=== PATIENT | female | born 1950 | race Caucasian/White ===

== ENCOUNTER 2018-03-06 11:15 | Outpatient (RCR) | payer MEDICARE, OTHER | END 2018-04-28 | disposition home or self-care (01) | LOC: WSC | DX: M54.2 Cervicalgia (principal); Z79.82 Long term (current) use of aspirin; Z79.899 Other long term (current) drug therapy; Z80.1 Family history of malignant neoplasm of trachea, bronchus and lung; Z82.49 Family history of ischemic heart disease and other diseases of the circulatory system; Z87.891 Personal history of nicotine dependence | CPT/HCPCS: G8981-GP; G8982-GP; G8983-GP ==

== ENCOUNTER 2019-05-02 13:23 | Outpatient (CLI) | payer MEDICARE, OTHER ==
[~2019-05-02] VITALS: Wt 78.2 kg
[2019-05-02] MEDS ORDERED: 00186-0370-20 IH (13:56)
[2019-05-02] MEDS ORDERED: FISH OIL 500 M1 EAC1 PO (13:57)
[2019-05-02] MEDS ORDERED: NIACIN 100100 MG/TAB PO (13:57)
[2019-05-02] MEDS ORDERED: MAG-OX 400400 MG/TAB PO (13:58)
[2019-05-02 14:00] VITALS: BP 112/59; PULSE 95; TEMP 98.1
[2019-05-02] MEDS ORDERED: INCRUSE EL62.5 MCG/A IH (14:00)
[2019-05-02] MEDS ORDERED: ASPIRIN 32325 MG/TAB PO (14:01)
== END 2019-05-02 15:17 | disposition home or self-care (01) ==
LOC: EUO 13:23
DX: M81.0 Age-related osteoporosis without current pathological fracture (principal)
CPT/HCPCS: J0897

== ENCOUNTER 2019-11-04 15:05 | Outpatient (CLI) | payer MEDICARE, OTHER ==
[~2019-11-04] VITALS: Wt 93.9 kg
[~2019-11-04 15:05] MED LIST: 00186-0370-20 IH; ASPIRIN 32325 MG/TAB PO; FISH OIL 500 M1 EAC1 PO; INCRUSE EL62.5 MCG/A IH; MAG-OX 400400 MG/TAB PO; NIACIN 100100 MG/TAB PO
[2019-11-04 15:19] VITALS: BP 134/95; PULSE 80; TEMP 98.2
== END 2019-11-04 16:05 | disposition home or self-care (01) ==
LOC: EUO 15:05
DX: M81.0 Age-related osteoporosis without current pathological fracture (principal); Z79.899 Other long term (current) drug therapy
CPT/HCPCS: J0897

== ENCOUNTER 2020-05-12 14:57 | Outpatient (CLI) | payer MEDICARE, OTHER ==
[~2020-05-12] VITALS: Ht 147.3 cm; Wt 92.5 kg
[2020-05-12 15:21] VITALS: BP 129/69; PULSE 80; TEMP 98.3
== END 2020-05-12 15:38 | disposition home or self-care (01) ==
LOC: EUO 14:57
DX: M81.0 Age-related osteoporosis without current pathological fracture (principal)
CPT/HCPCS: J0897

== ENCOUNTER 2020-11-01 15:38 | Inpatient (IN) | payer MEDICARE ==
[~2020-11-01] VITALS: Ht 147.3 cm; Wt 90.5 kg
[2020-11-01 16:32] LABS: BASO # 0.1 (0.0-0.2); BASO % 0.7 % (0.0-2.0); EOS # 0.1 (0.0-0.7); EOS % 1.2 % (0-4.0); GRAN # 6.5 (1.4-6.5); GRAN % 63.4 % (42.2-75.2); HEMATOCRIT 49.9 % (37.0-47.0); HEMOGLOBIN 15.9 g/dl (12.5-16.0); LYMPH # 2.9 (1.2-3.4); LYMPH % 28.1 % (20.0-51.0); MEAN CELL VOLUME 97 fl (80.0-100.0); MEAN CORPUSCULAR HEMOGLOBIN 31 pg (27.0-31.0); MEAN CORPUSCULAR HGB CONC 32 g/dl (33.0-37.0); MEAN PLATELET VOLUME 10.1 fl (7.4-10.4); MONO # 0.6 (0.1-0.6); MONO % 6.1 % (1.7-9.3); PLATELET COUNT 263 K/mm3 (130-400); RED BLOOD COUNT 5.13 M/mm3 (4.10-5.30)
[2020-11-01 16:41] LABS: INR 1.4 (0.8-3.0); PROTHROMBIN TIME 15.8 SECONDS (9.7-12.8)
[2020-11-01 16:43] LABS: ALANINE AMINOTRANSFERASE 11 U/L (4-34); ALBUMIN 4.3 gm/dL (3.5-5.0); ALKALINE PHOSPHATASE 74 U/L (50-136); ANION GAP 6 mmol/L (7-16); AST,SGOT 21 U/L (15-37); BILIRUBIN,TOTAL 0.5 mg/dL (0.0-1.0); BLOOD UREA NITROGEN 11 mg/dL (7-17); CALCIUM 8.9 mg/dL (8.4-10.2); CARBON DIOXIDE 26 mmol/L (22-30); CHLORIDE 105 mmol/L (98-107); CREATININE, serum 0.62 (0.52-1.25); GLUCOSE 103 mg/dL (74-106); PARTIAL THROMBOPLASTIN TIME 40.6 SECONDS (26.0-37.0); POTASSIUM 4.3 mmol/L (3.4-5.0); SODIUM 137 mmol/L (137-145); TOTAL PROTEIN 7.4 gm/dL (6.4-8.2)
[2020-11-01 16:56] LABS: TROPONIN-I < 0.012 ng/mL (0.000-0.035)
[2020-11-01] MEDS ORDERED: ELIQUIS 5MG PO (18:48)
[2020-11-01] MEDS ORDERED: VITAMIN D31000 I1 PO (18:48)
[2020-11-01] MEDS ORDERED: TRELEGY ELLIPT1 EACH IH (18:49)
[2020-11-01] MEDS ORDERED: CARDIZEM120 MG PO (18:49)
[2020-11-01] MEDS ORDERED: VENTOLIN0.09 MG IH (18:50)
[2020-11-01] MEDS ORDERED: NATURAL IRON65 MG PO (18:51)
[2020-11-01] MEDS ORDERED: RT ALBUTER2.5 MG/0.5 IH (18:51)
--- NOTE | 2020-11-01 20:00 | NUR ---
Patient up from ED via wheelchair with and daughter. Oriented to room and call light. Admission and med rec complete. Patient sitting in recliner eating dinner tray. No additional needs at this time.
[2020-11-01 21:10] VITALS: BP 126/50; PULSE 64; TEMP 98.2
[2020-11-02] VITALS (14 sets, daily range): BP systolic 100–142; BP diastolic 35–67; PULSE 59–99; TEMP 97.7–98.9
--- NOTE | 2020-11-02 12:01 | NUR ---
Patient alert and oriented, answers questions appropriately. See assessment. Heart tones strong and irregular. No c/o chest or jaw pain or pressure. Patient and family at bedside upset about no having cardioversion done yet. Reviewed with patient that Carcass Washer is aware of patient status and will be seeing her. Patient daughter keeps shaking head and repeating "this is ridiculous, do you know she hasn't eaten in 24hr." Reviewed POC with patient and family. No other c/o at this time.
--- NOTE | 2020-11-02 12:52 | NUR ---
First visit from the women's health care nurse practitioner. No needs right now.
--- NOTE | 2020-11-02 13:18 | NUR ---
Cop Winder attended clinical rounds with the team and patient expressed frustration waiting on if she can have her procedure done today or not. Hosptialist advised patient he has followed up with Cardiology. SW met with patient after rounds to discuss discharge planning. Patient's , Anthony and daughter, Emma are at bedside. Patient lives in [place] with her and sees Dr. Willett for primary care. Patient obtains medications from [facility] and states her prescriptions are expensive. SW consulted Financial Counseling to determine if patient would qualify for Medicaid. Patient has a cane and walker at home and reports she is independent with ADLS, however can get worn out by taking a shower. Patient does not have Advance Directives but would like to complete form. MARGIE assisted patient in completing DPOA-HC form in which she designated her and daughter. MARGIE and JESS Mejia provided witness signatures. MARGIE placed copy in chart then provided original and copies to patient. Discharge Plan: Home with
--- NOTE | 2020-11-02 14:17 | NUR ---
Patient to labor delivery specialist with labor delivery specialist staff at 1340.
--- NOTE | 2020-11-02 21:00 | NUR ---
Patient resting in bed. Wheezes heard on expiration. Dyspnea at rest and with excertion. 2 L of oxygen via nasal cannula.
[2020-11-03] VITALS (7 sets, daily range): BP systolic 102–132; BP diastolic 39–65; PULSE 51–84; TEMP 97.8–98.9
--- NOTE | 2020-11-03 01:04 | NUR ---
Patient got up to the bathroom and is now feeling short of breath and would like a breathing treatment. Called RT.
[2020-11-03 07:02] LABS: BASO # 0.1 (0.0-0.2); BASO % 0.6 % (0.0-2.0); EOS # 0.2 (0.0-0.7); GRAN % 53.4 % (42.2-75.2); HEMATOCRIT 42.8 % (37.0-47.0); HEMOGLOBIN 13.6 g/dl (12.5-16.0); LYMPH # 3.2 (1.2-3.4); LYMPH % 34.6 % (20.0-51.0); MEAN CELL VOLUME 99 fl (80.0-100.0); MEAN CORPUSCULAR HEMOGLOBIN 31 pg (27.0-31.0); MEAN CORPUSCULAR HGB CONC 32 g/dl (33.0-37.0); MEAN PLATELET VOLUME 10.1 fl (7.4-10.4); MONO # 0.9 (0.1-0.6); MONO % 9.1 % (1.7-9.3); PLATELET COUNT 257 K/mm3 (130-400); RED BLOOD COUNT 4.33 M/mm3 (4.10-5.30); REDCELL DISTRIBUTION WIDTH-CV 13.9 % (11.5-14.5)
[2020-11-03 07:20] LABS: CALCIUM 8.6 mg/dL (8.4-10.2); CREATININE, serum 0.6 (0.52-1.25); MAGNESIUM 2.3 mg/dL (1.6-2.3); POTASSIUM 4.6 mmol/L (3.4-5.0)
--- NOTE | 2020-11-03 11:54 | NUR ---
Counter Checker spoke with RN, Jackie who advised patient is independent in her room. Patient is currently on oxygen and does not use it at baseline. SW will continue to monitor.
[2020-11-04 03:49] VITALS: BP 122/63; PULSE 75; TEMP 98.7
[2020-11-04 07:04] LABS: GRAN # 3.4 (1.4-6.5); GRAN % 74.3 % (42.2-75.2); HEMOGLOBIN 13.8 g/dl (12.5-16.0); LYMPH # 1.1 (1.2-3.4); LYMPH % 24.2 % (20.0-51.0); MEAN CELL VOLUME 95 fl (80.0-100.0); MEAN CORPUSCULAR HEMOGLOBIN 31 pg (27.0-31.0); MEAN CORPUSCULAR HGB CONC 32 g/dl (33.0-37.0); MEAN PLATELET VOLUME 10.2 fl (7.4-10.4); MONO # 0.1 (0.1-0.6); MONO % 1.1 % (1.7-9.3); PLATELET COUNT 249 K/mm3 (130-400); RED BLOOD COUNT 4.51 M/mm3 (4.10-5.30); REDCELL DISTRIBUTION WIDTH-CV 13.2 % (11.5-14.5)
[2020-11-04 07:17] VITALS: BP 106/48; PULSE 55; TEMP 97.7
[2020-11-04 07:36] LABS: CALCIUM 9.1 mg/dL (8.4-10.2); CREATININE, serum 0.58 (0.52-1.25); MAGNESIUM 2.2 mg/dL (1.6-2.3)
[2020-11-04] MEDS ORDERED: PACERONE400 MG PO (08:52)
[2020-11-04] MEDS ORDERED: MEDROL 4MG DOSPA4 MG PO (08:52)
--- NOTE | 2020-11-04 10:30 | NUR ---
Patient is doing well this morning. She is hoping to discharge home today. We are waiting for Cardiology to see her and discharge. Denies nausea and pain. Discussed the plan for her discharge. She stated her family will be here soon to take her home. Her oxygen has been off and her saturation is 92% on room air. No other changes at this time. Call light within reach.
[2020-11-04] MEDS ORDERED: CORDARONE200 MG/TAB PO (11:17)
[2020-11-04 12:24] VITALS: BP 118/46; PULSE 61; TEMP 98.1
--- NOTE | 2020-11-04 14:00 | NUR ---
Patient is discharging home. Discharge instructions discussed with patient. No questions verbalized. INT discontinued. All belongings packed up and sent with patient. Explained her prescriptions to pickling operator and when her follow up appointment is. No questions verbalized. Copies of discharge instructions sent with patient. Patient walked out via wheel chair by Yasmin ARVIZU.
--- NOTE | 2020-11-04 14:28 | NUR ---
PT/OT ordered for patient. PTEileen spoke with MARGIE and advised patient would benefit from Home Health services. MARGIE attended clinical rounds with the team and patient to discharge home today. MARGIE followed up with patient about HH services. Patient is interested in HH services so SW provided Medicare.gov list of HH agencies that serve [place]. Patient selected [facility] as first preference. MARGIE contacted Mar at [facility] and faxed referral. Mar advised that they could accept referral. MARGIE collaborated with RTPepper who advised patient does not need home oxygen. MARGIE faxed discharge orders to Mar at [facility]. No additional needs at this time. Discharge Plan: Home with [facility]
== END 2020-11-04 14:00 | disposition home health service (06) | DRG 308 ==
LOC: COL.ER 15:38 → SURG 18:06
PROVIDERS: Family Medicine; ADMIT Student in an Organized Health Care Education/Training Program
PROC: 5A2204Z Restoration of Cardiac Rhythm, Single (ICD-10-PCS; principal; 2020-11-03)
DX: I48.0 Paroxysmal atrial fibrillation (principal); J96.01 Acute respiratory failure with hypoxia; J44.9 Chronic obstructive pulmonary disease, unspecified; I50.9 Heart failure, unspecified; F17.210 Nicotine dependence, cigarettes, uncomplicated; Z90.49 Acquired absence of other specified parts of digestive tract; Z87.01 Personal history of pneumonia (recurrent); Z79.82 Long term (current) use of aspirin
CPT/HCPCS: 99223-AI; 99232-AI; 99239; G0378; J2704; J2920

== ENCOUNTER 2020-11-17 14:50 | Outpatient (CLI) | payer MEDICARE ==
[~2020-11-17] VITALS: Ht 147.3 cm; Wt 91.3 kg
[~2020-11-17 14:50] MED LIST changes: +CARDIZEM120 MG PO; +CORDARONE200 MG/TAB PO; +ELIQUIS 5MG PO; +MEDROL 4MG DOSPA4 MG PO; +NATURAL IRON65 MG PO; +PACERONE400 MG PO; +RT ALBUTER2.5 MG/0.5 IH; +TRELEGY ELLIPT1 EACH IH; +VENTOLIN0.09 MG IH; +VITAMIN D31000 I1 PO
[2020-11-17 15:08] VITALS: BP 133/29; PULSE 90; TEMP 97.8
[2020-11-17] MEDS ORDERED: CORDARONE200 MG/TAB PO (15:39)
== END 2020-11-17 15:42 | disposition home or self-care (01) ==
LOC: EUO 14:50
DX: M81.0 Age-related osteoporosis without current pathological fracture (principal)
CPT/HCPCS: J0897

== ENCOUNTER 2021-05-24 13:06 | Outpatient (CLI) | payer MEDICARE ==
[~2021-05-24] VITALS: Ht 147.3 cm; Wt 98.7 kg
[2021-05-24 13:51] VITALS: BP 124/75; PULSE 65; TEMP 98.4
== END 2021-05-24 13:52 | disposition home or self-care (01) ==
LOC: EUO 13:06
DX: M81.0 Age-related osteoporosis without current pathological fracture (principal)
CPT/HCPCS: J0897

== ENCOUNTER 2021-08-13 06:24 | Emergency (ER) | payer MEDICARE ==
[~2021-08-13] VITALS: Ht 147.3 cm; Wt 100.0 kg
[2021-08-13 06:25] VITALS: TEMP 97.9
[2021-08-13 06:47] LABS: BASO # 0.1 K/mm3 (0.0-0.2); BASO % 0.7 % (0.0-2.0); EOS # 0.1 K/mm3 (0.0-0.7); EOS % 0.6 % (0.0-4.0); GRAN % 57.5 % (42.2-75.2); HEMATOCRIT 45.8 % (37.0-47.0); HEMOGLOBIN 14.8 g/dl (12.5-16.0); LYMPH # 2.8 K/mm3 (1.2-3.4); LYMPH % 32.6 % (20.0-51.0); MEAN CELL VOLUME 97 fl (80.0-100.0); MEAN CORPUSCULAR HEMOGLOBIN 31 pg (27-31); MEAN CORPUSCULAR HGB CONC 32 g/dl (33.0-37.0); MEAN PLATELET VOLUME 10.1 fl (7.4-10.4); MONO # 0.7 K/mm3 (0.1-0.6); MONO % 8.1 % (1.7-9.3); PLATELET COUNT 231 K/mm3 (130-400); RED BLOOD COUNT 4.73 M/mm3 (4.10-5.30); REDCELL DISTRIBUTION WIDTH-CV 14.6 % (11.5-14.5)
[2021-08-13 06:58] LABS: ALBUMIN 3.9 gm/dL (3.4-4.8); CALCIUM 9.4 mg/dL (8.4-10.2); CREATININE, serum 0.8 mg/dL (0.57-1.11); PHOSPHOROUS 4.6 mg/dL (2.3-4.7); POTASSIUM 4.4 mmol/L (3.5-4.5)
[2021-08-13 07:05] LABS: TROPONIN-I 0.011 ng/mL (0.00-0.033)
[2021-08-13] MEDS ORDERED: PREDNISONE50 MG PO (10:47)
[2021-08-13 10:51] VITALS: BP 126/45; PULSE 80
== END 2021-08-13 10:51 | disposition home or self-care (01) ==
LOC: COL.ER 06:24
PROVIDERS: Emergency Medicine
DX: R06.00 Dyspnea, unspecified (principal); I48.91 Unspecified atrial fibrillation; F17.200 Nicotine dependence, unspecified, uncomplicated; Z20.822 Contact with and (suspected) exposure to COVID-19; Z79.01 Long term (current) use of anticoagulants
CPT/HCPCS: J7512

== ENCOUNTER 2022-04-07 13:30 | Outpatient (RCR) | payer MEDICARE ==
[~2022-04-07 13:30] MED LIST changes: +BREZTRI AEROS10.7 GM IH; +PREDNISONE50 MG PO
== END 2022-04-10 | disposition home or self-care (01) ==
LOC: WSPT
DX: M47.816 Spondylosis without myelopathy or radiculopathy, lumbar region (principal)